=== PATIENT | female | born 1945 | race Caucasian/White ===

== ENCOUNTER → 2016-12-15 | Outpatient (CLI) | payer MEDICARE ==
--- NOTE | 2016-12-16 08:35 | MM ---
Reason for exam: screening (asymptomatic). Last mammogram was performed 1 year ago. History: Patient is postmenopausal, has history of endometrial cancer at age 61, has history of colon cancer at age 61, and is nulliparous. Physical Findings: A clinical breast exam by your physician is recommended on an annual basis and results should be correlated with mammographic findings. MG 3D Screening Mammo W/Cad Bilateral CC, MLO, and XCCL view(s) were taken. Prior study comparison: December 05, 2015, bilateral MG 3d diag mammo w/cad [facility]. May 28, 2015, bilateral MG 3d screening mammo w/cad. Finding: There are typically benign calcifications in both breasts. No significant changes in finding since December 05, 2015 and May 28, 2015. ASSESSMENT: Benign, BI-RAD 2 RECOMMENDATION: Routine screening mammogram of both breasts in 1 year.
== END ==
LOC: RADMAMWWP 10:32
PROVIDERS: ATTEND Family Medicine
DX: Z12.31 Encounter for screening mammogram for malignant neoplasm of breast (principal)
CPT/HCPCS: 77063; G0202

== ENCOUNTER → 2017-06-27 | Outpatient (CLI) | payer MEDICARE ==
--- NOTE | 2017-06-28 15:20 | PE ---
EXAMINATION TYPE: PET CT fusion skull to thigh DATE OF EXAM: 06/27/2017 CLINICAL HISTORY: 71-year-old female restaging colon cancer. Patient with surgery on 08/30/2007. TECHNIQUE: Following the intravenous administration of 11.2 mCi of F-18 FDG, whole body images are performed from the skull base to the midthigh. Images are reviewed on the computer in the coronal, a xial, and sagittal planes. Reconstructed rotating images are created on independent workstation and reviewed on the computer. A localization and attenuation correction CT is performed in conjunction with the PET scan. Glucose level: 71 mg/dL CTDI: 5.05 mGy DLP: 448.99 mGy-cm Injection site: right antecubital fossa COMPARISON: 12/01/2011 FINDINGS: PET: Physiologic FDG uptake within the neck. Physiologic FDG uptake within the chest. Average liver SUV 2.8. There is a staple line from prior resection and re-anastomosis along the mid to distal sigmoid. No bennett spicious mass or hypermetabolism here. Physiologic FDG uptake within the abdomen and pelvis. ATTENUATION CORRECTION CT: Paranasal sinuses and mastoid air cells well pneumatized. Slight rightward nasal septal deviation. No cervical lymphadenopathy. The heart is upper limits of normal in size without pericardial effusion. Aorta normal caliber with c onventional arch vessel branching anatomy. Large caliber to the main right and left pulmonary arterie s at 3.4 and 2.7 cm, respectively, suggestive of pulmonary arterial hypertension. A few nonenlarged m ediastinal lymph nodes measure up to 6 mm precarinal region. No thoracic lymphadenopathy by CT size c riteria. Evaluation of the lungs shows mild diffuse bronchial wall thickening which can be seen with bronchitis or asthma. No consolidation or pleural effusion. Some strandy bibasilar atelectasis. Moderate-sized hiatal hernia. Numerous layering calculi in the gallbladder. No abnormal gallbladder distention. Progressive fatty atrophy of the pancreas. No dilated small bowel, free fluid, or free ai r. No mesenteric or retroperitoneal lymphadenopathy. No significant stool burden. Bladder nondistended. Uterus surgically absent. Neither ovary is visualized. No abnormal fluid collec tion in the pelvis or pelvic lymphadenopathy. Bones: Mild degenerative changes at the hips. Degenerative changes lower lumbar spine. Endplate spond ylosis mid thoracic spine. No osseous destructive process. IMPRESSION: 1. Prior partial sigmoid resection with reanastomosis. No evidence for locoregional recurrence or met astatic disease. 2. Incidental: Findings suggest pulmonary arterial hypertension. 3. Incidental: Moderate size hiatal hernia and numerous gallstones.
== END | disposition home or self-care (01) ==
LOC: RADPETMAIN 11:18
PROVIDERS: ATTEND Family Medicine
DX: C18.9 Malignant neoplasm of colon, unspecified (principal); Z98.890 Other specified postprocedural states
CPT/HCPCS: 78815; A9552

== ENCOUNTER → 2018-01-30 | Outpatient (CLI) | payer MEDICARE ==
--- NOTE | 2018-02-01 10:22 | MM ---
Reason for exam: screening (asymptomatic). Last mammogram was performed 1 year and 2 months ago. History: Patient is postmenopausal, has history of endometrial cancer at age 61, has history of colon cancer at age 61, and is nulliparous. Physical Findings: Nurse did not find any significant physical abnormalities on exam. MG 3D Screening Mammo W/Cad Bilateral CC and MLO view(s) were taken. Prior study comparison: December 15, 2016, bilateral MG 3d screening mammo w/cad. December 05, 2015, bilateral MG 3d diag mammo w/cad [facility]. There are scattered fibroglandular densities. Benign appearing bilateral calcifications. No suspicious abnormality. No significant changes when compared with prior studies. ASSESSMENT: Benign, BI-RAD 2 RECOMMENDATION: Routine screening mammogram of both breasts in 1 year.
== END | disposition home or self-care (01) ==
LOC: RADMAMWWP 11:27
PROVIDERS: ATTEND Family Medicine
DX: Z12.31 Encounter for screening mammogram for malignant neoplasm of breast (principal)
CPT/HCPCS: 77063; 77067

== ENCOUNTER → 2018-03-22 | Outpatient (CLI) | payer MEDICARE ==
--- NOTE | 2018-03-22 11:38 | US ---
EXAMINATION TYPE: US abdomen complete DATE OF EXAM: 03/22/2018 COMPARISON: NONE CLINICAL HISTORY: 72-year-old female R07.89 Other chest pain. TECHNIQUE: Multiple sonographic images of the abdomen are obtained. FINDINGS: EXAM MEASUREMENTS: Liver Length: 17.2 cm Gallbladder Wall: 0.3 cm CBD: 0.4 cm Spleen: 8.7 cm Right Kidney: 10.6 x 5.9 x 6.2 cm Left Kidney: 11.1 x 6.5 x 6.5 cm Pancreas: The pancreatic head, neck, and a portion of the body are visualized and show no gross abno rmality. The remainder of the pancreatic body and tail are suboptimally visualized due to shadowing f rom bowel gas. Liver: Heterogeneous, echogenic, and attenuating. Some focal fat is present along the gallbladder fo ssa. Gallbladder: Numerous mobile gallstones are present. No abnormal distention, wall thickening, or per icholecystic fluid.Evidence for sonographic Sam's sign: no CBD: wnl Spleen: wnl Right Kidney: No hydronephrosis. Left Kidney: No hydronephrosis. Upper IVC: wnl Abd Aorta: wnl IMPRESSION: 1. Borderline size liver (17.2 cm) with mild to moderate hepatic steatosis. 2. Cholelithiasis without evidence for acute cholecystitis. 3. No biliary ductal dilatation.
== END | disposition home or self-care (01) ==
LOC: RADUSWWP 07:18
PROVIDERS: ATTEND Family Medicine
DX: K80.20 Calculus of gallbladder without cholecystitis without obstruction (principal); K76.0 Fatty (change of) liver, not elsewhere classified
CPT/HCPCS: 76700

== ENCOUNTER → 2019-02-03 | Outpatient (CLI) | payer MEDICARE ==
--- NOTE | 2019-02-03 15:05 | BD ---
EXAMINATION TYPE: Axial Bone Density DATE OF EXAM: 02/03/2019 COMPARISON: 11.07.2009 CLINICAL HISTORY: 73 YR OLD FEMALE.... ICD-10 CODE: M89.9 DISORDER OF BONE Height: 65.2 Weight: 243 FRAX RISK QUESTIONS: 5. Chronic liver disease: FATTY LIVER RISK FACTORS HISTORY OF: Active: FAIRLY Postmenopausal woman: YES ABOUT AGE 55 YRS OLD Hyperparathyroidism: NO Adrenal Insufficiency: NO MEDICATIONS: Thyroid Medications: YES, SYNTHROID FOR ABOUT ONE YR Additional Medications: BP MEDS, VIT D, Additional History: BILAT TOTAL KNEES, OSTEOARTHRITIS, ENDOMETRIAL AND COLON CANCER, EXAM MEASUREMENTS: Bone mineral densitometry was performed using the [employer] System. Bone mineral density as measured about the Lumbar spine is: ----- L1-L4(G/cm2): 1.100 T Score Values are as follows: ----- L1: -1.2 ----- L2: -0.8 ----- L3: -0.5 ----- L4: -0.4 ----- L1-L4: -0.7 Bone mineral density has: Increased 9.2% since study of: 11.07.2009 Bone mineral density about the R hip (g/cm2): 0.884 Bone mineral density about the L hip (g/cm2): 0.924 T Score values are as follows: -----R Neck: -1.5 -----L Neck: -1.8 -----R Total: -1.0 -----L Total: -0.7 Bone mineral density has: Increased 1.2% since study of: 11.07.2009 FRAX%s: THERE IS A 10.0% CHANCE FOR A MAJOR OSTEOPOROTIC FX AND A 1.7% FOR HIP....PROBABILITY FOR FX IN 10 YRS TIME IMPRESSION: Osteopenia (T Score between -2.5 and -1). There is slightly increased risk of fracture and the patient may be considered for treatment. Re-Screen 2-5 years. NOTE: T-SCORE=SD OF THE YOUNG ADULT MEAN.
--- NOTE | 2019-02-04 14:11 | MM ---
Reason for exam: screening (asymptomatic). Last mammogram was performed 1 year ago. History: Patient is postmenopausal, has history of endometrial cancer at age 61, has history of colon cancer at age 61, and is nulliparous. Physical Findings: A clinical breast exam by your physician is recommended on an annual basis and results should be correlated with mammographic findings. MG 3D Screening Mammo W/Cad Bilateral CC and MLO view(s) were taken. Prior study comparison: January 30, 2018, bilateral MG 3d screening mammo w/cad. December 15, 2016, bilateral MG 3d screening mammo w/cad. There are scattered fibroglandular densities. Finding: There are typically benign linear diffuse calcifications in both breasts. There is a chronic nodularity bilaterally. There is no discrete abnormality. ASSESSMENT: Benign, BI-RAD 2 RECOMMENDATION: Routine screening mammogram of both breasts in 1 year.
== END | disposition home or self-care (01) ==
LOC: RADMAMWWP 13:12
PROVIDERS: ATTEND Family Medicine
DX: Z12.31 Encounter for screening mammogram for malignant neoplasm of breast (principal); M85.80 Other specified disorders of bone density and structure, unspecified site
CPT/HCPCS: 77063; 77067; 77080

== ENCOUNTER → 2020-02-06 | Outpatient (CLI) | payer MEDICARE ==
--- NOTE | 2020-02-06 14:21 | US ---
EXAMINATION TYPE: US carotid duplex BILAT DATE OF EXAM: 02/06/2020 COMPARISON: NONE CLINICAL HISTORY: G45.9 Transient cerebral ischemic attack. EXAM MEASUREMENTS: RIGHT: Peak Systolic Velocity (PSV) cm/sec ----- Right CCA: 88.1 ----- Right ICA: 101.1 ----- Right ECA: 107.0 ICA/CCA ratio: 1.1 RIGHT: End Diastole cm/sec ----- Right CCA: 25.6 ----- Right ICA: 38.7 ----- Right ECA: 15.4 LEFT: Peak Systolic Velocity (PSV) cm/sec ----- Left CCA: 95.3 ----- Left ICA: 88.1 ----- Left ECA: 59.0 ICA/CCA ratio: 0.9 LEFT: End Diastole cm/sec ----- Left CCA: 29.9 ----- Left ICA: 28.5 ----- Left ECA: 0 VERTEBRALS (direction of flow): Right Vertebral: Antegrade Left Vertebral: Antegrade Rhythm: Normal Grayscale images show moderate hypoechoic plaque at carotid bulb level bilaterally but velocity measu rements and ratios in the visualized portion of both internal carotid arteries is within normal limit s. IMPRESSION: Moderate atherosclerotic changes bilaterally without hemodynamically significant stenosi s in either internal carotid artery. Criteria for Assigning % of Stenosis / Diameter reduction (Estimation based on the indirect measurements of the internal carotid artery velocities (ICA PSV). 1. Normal (no stenosis)=ICA PSV < 125 cm/s: ratio < 2.0: ICA EDV<40 cm/s. 2. Less than 50% stenosis=ICA PSV < 125 cm/s: ratio < 2.0: ICA EDV<40 cm/s. 3. 50 to 69% stenosis=ICA PSV of 125 to 230 cm/s: ration 2.0 ? 4.0: ICA EDV 40-100 cm/s. 4. Greater than 70% stenosis to near occlusion= ICA PSV > 230 cm/s: ratio > 4.0: ICA EDV > 100 cm/s. 5. Near occlusion= ICA PSV velocities may be low or undetectable: variable ratio and ICA EDV. 6. Total occlusion=unable to detect flow.
== END | disposition home or self-care (01) ==
LOC: RADUSWWP 13:12
PROVIDERS: ATTEND Family Medicine
DX: I65.23 Occlusion and stenosis of bilateral carotid arteries (principal)
CPT/HCPCS: 93880

== ENCOUNTER → 2020-02-06 | Outpatient (CLI) | payer MEDICARE ==
--- NOTE | 2020-02-07 14:25 | MM ---
Reason for exam: screening (asymptomatic). Last mammogram was performed 1 year ago. History: Patient is postmenopausal, has history of endometrial cancer at age 61, has history of colon cancer at age 61, and is nulliparous. Physical Findings: A clinical breast exam by your physician is recommended on an annual basis and results should be correlated with mammographic findings. MG 3D Screening Mammo W/Cad Bilateral CC, MLO, and XCCL view(s) were taken. Prior study comparison: February 03, 2019, bilateral MG 3d screening mammo w/cad. January 30, 2018, bilateral MG 3d screening mammo w/cad. There are scattered fibroglandular densities. No significant changes when compared with prior studies. ASSESSMENT: Benign, BI-RAD 2 RECOMMENDATION: Routine screening mammogram of both breasts in 1 year.
== END | disposition home or self-care (01) ==
LOC: RADMAMWWP 13:09
PROVIDERS: ATTEND Family Medicine
DX: Z12.31 Encounter for screening mammogram for malignant neoplasm of breast (principal)
CPT/HCPCS: 77063; 77067

== ENCOUNTER → 2020-09-24 | Outpatient (CLI) | payer MEDICARE ==
--- NOTE | 2020-09-25 08:22 | US ---
EXAMINATION TYPE: US thyroid st tissue head/neck DATE OF EXAM: 09/24/2020 COMPARISON: NONE CLINICAL HISTORY: R22.1 NECK MASS. Patient states personal history of endometrial and colon cancer. Patient noticed palpable area, right cervical area. Scanning was performed directly over palpable are a, as pointed out by patient. There is a chain of nodes, largest measures 1.6 x 0.6 cm. IMPRESSION: Suraj lymph nodes identified.
== END | disposition home or self-care (01) ==
LOC: RADUSWWP 16:18
PROVIDERS: ATTEND Family Medicine
DX: R59.9 Enlarged lymph nodes, unspecified (principal)
CPT/HCPCS: 76536

== ENCOUNTER → 2021-01-18 | Outpatient (CLI) | payer MEDICARE ==
--- NOTE | 2021-01-20 22:24 | US ---
EXAMINATION TYPE: US st tissue neck DATE OF EXAM: 01/18/2021 COMPARISON: NONE CLINICAL HISTORY: 75-year-old female R59.1 Lymphadenopathy. TECHNIQUE: Multiple sonographic images of both sides of the neck. FINDINGS: [employer] notes: Multiple lymph nodes bilateral neck. Largest = 1.5 x 0.7 x 1.2 cm on the right and 1.7 x 0.5 x 0.9 cm on the left IMPRESSION: Multiple lymph nodes on both sides of the neck. These are nonenlarged and borderline in size measurin g up to 1.2 cm short axis on the right and 0.9 cm short axis on the left. Probably reactive/post infl ammatory. Previously reported as measuring up to 1.6 x 0.6 cm. Ongoing clinical and ultrasound follow -up can be considered. If lymph nodes are seen to be enlarging, sampling or contrast-enhanced CT can be considered.
== END | disposition home or self-care (01) ==
LOC: RADUSWWP 16:51
PROVIDERS: ATTEND Family Medicine
DX: R59.1 Generalized enlarged lymph nodes (principal)
CPT/HCPCS: 76536

== ENCOUNTER → 2021-02-18 | Outpatient (CLI) | payer MEDICARE ==
--- NOTE | 2021-02-19 12:23 | MM ---
Reason for exam: screening (asymptomatic). Last mammogram was performed 1 year ago. History: Patient is postmenopausal, has history of endometrial cancer at age 61, has history of colon cancer at age 61, and is nulliparous. Physical Findings: A clinical breast exam by your physician is recommended on an annual basis and results should be correlated with mammographic findings. MG 3D Screening Mammo W/Cad Bilateral CC, MLO, and XCCL view(s) were taken. Prior study comparison: February 06, 2020, bilateral MG 3d screening mammo w/cad. February 03, 2019, bilateral MG 3d screening mammo w/cad. The breast tissue is almost entirely fat. There is chronic nodularity bilaterally. No significant changes when compared with prior studies. ASSESSMENT: Benign, BI-RAD 2 RECOMMENDATION: Routine screening mammogram of both breasts in 1 year.
== END | disposition home or self-care (01) ==
LOC: RADMAMWWP 13:17
PROVIDERS: ATTEND Family Medicine
DX: Z12.31 Encounter for screening mammogram for malignant neoplasm of breast (principal)
CPT/HCPCS: 77063; 77067

== ENCOUNTER → 2022-02-19 | Outpatient (CLI) | payer MEDICARE ==
--- NOTE | 2022-02-20 19:06 | MM ---
Reason for Exam: Screening (asymptomatic). Last screening mammogram was performed 12 month(s) ago. Patient History: Menarche at age 16. Patient has no children. Left ovary removed at age 61. Right ovary removed at age 61. Hysterectomy at age 61. Postmenopausal. Endometrial cancer, age 61. Colorectal cancer, age 61. Risk Values: Karen 5 year model risk: 1.8%. NCI Lifetime model risk: 4.1%. Prior Study Comparison: 02/03/2019 Bilateral Screening Mammogram, [facility]. 02/06/2020 Bilateral Screening Mammogram, [facility]. 02/18/2021 Bilateral Screening Mammogram, [facility]. Tissue Density: There are scattered fibroglandular densities. Findings: Analyzed By CAD. Unchanged focal tortuous vascularity lateral left CC view at middle depth. Asymmetric density laterally left CC view outer posterior depth remains unchanged. Also unchanged bilateral benign secretory calcifications. No significant change from prior exams. Overall Assessment: Benign, BI-RAD 2 Management: Screening Mammogram of both breasts in 1 year. 1. Patient should continue monthly self breast exams. 2. A clinical breast exam by your physician is recommended on an annual basis. 3. This exam should not preclude additional follow-up of suspicious palpable abnormalities. Electronically signed and approved by: Daniel Corea M.D. Radiologist
== END | disposition home or self-care (01) ==
LOC: RADMAMWWP 14:37
PROVIDERS: ATTEND Family Medicine
DX: Z12.31 Encounter for screening mammogram for malignant neoplasm of breast (principal); C19 Malignant neoplasm of rectosigmoid junction; Z78.0 Asymptomatic menopausal state; Z90.722 Acquired absence of ovaries, bilateral; Z85.42 Personal history of malignant neoplasm of other parts of uterus
CPT/HCPCS: 77063; 77067

== ENCOUNTER 2022-10-23 21:51 | Observation (INO) | payer MEDICARE ==
--- NOTE | 2022-10-23 22:36 | CT ---
EXAMINATION TYPE: CT brain cspine wo con CT DLP: 1565 mGycm, Automated exposure control for dose reduction was used. DATE OF EXAM: 10/23/2022 10:28 PM COMPARISON: None.. CLINICAL INDICATION:Female, 76 years old with history of fall; PT reports she lost her balance on her porch and fell backwards onto butt. States she has lower back pain and left shoulder pain TECHNIQUE: Brain: Multiple axial CT images of the brain were obtained without IV contrast. Cspine: Axial CT images from the skull base to the inferior aspect of T2 we obtained without intraven ous contrast. Coronal and sagittal reformatted images were also reviewed. FINDINGS: Brain: Extra-axial spaces: No abnormal extra-axial fluid collections. Ventricular system: Within normal limits Cerebral parenchyma: Mild cerebral atrophy. No acute intraparenchymal hemorrhage or mass effect. The goyal-white junction is well differentiated. Scattered hypoattenuating areas are seen within the whit e matter. Cerebellum: Unremarkable. Mass effect: No evidence of midline shift. Intracranial vasculature: Atherosclerotic calcifications of the intracranial vessels. Soft tissues: Right frontal scalp 1.6 x 0.5 cm lipoma. Calvarium/osseous structures: No depressed skull fracture. Paranasal sinuses and mastoid air cells: Clear. Visualized orbits: Bilateral aphakia Cervical spine: Fracture: None. Osseous structures: Multilevel degenerative disc disease changes with endplate spurring and anterior osteophytosis. Multilevel facet arthropathy. Vertebral alignment: Mild reversal of the normal cervical lordosis. Spinal canal/Neural Foramina: Disc osteophyte complexes at C4-C5 and C6-C7 with at least mild spinal canal stenosis. Facet joint uncovertebral joint arthropathy scattered throughout the cervical spine w ith varying degrees of neural foraminal stenosis. Neck soft tissues: Prevertebral soft tissues are within normal limits. Other: The airway is patent. The lung apices are clear. IMPRESSION: 1. No acute intracranial process. 2. Nonspecific white matter changes, likely secondary to chronic small vessel ischemic disease. 3. No evidence of cervical spine fracture. 4. Mild multilevel degenerative disc disease.
[2022-10-23] MEDS ORDERED: MORPHINE SULFATE 4 MG/ML SYRINGE IM STA (22:41)
--- NOTE | 2022-10-23 22:42 | XR ---
EXAMINATION TYPE: XR shoulder complete LT, XR clavicle LT DATE OF EXAM: 10/23/2022 10:34 PM INDICATION: Patient age:Female; 76 years old; Reason for study: fall; COMPARISON: None TECHNIQUE: The left shoulder was examined in AP internal rotation, AP external rotation, scapular Y view projection. The left clavicle was evaluated in 2 views. FINDINGS: No acute fracture or dislocation. Diffuse bone demineralization. Mild soft tissue swelling of the jose enrique ulder. The remaining portions of the visualized chest are unremarkable. IMPRESSION: 1. No acute osseous pathology. 2. Mild soft tissue tissue swelling of the shoulder.
--- NOTE | 2022-10-23 22:49 | CT ---
EXAMINATION TYPE: CT lumbar spine wo con CT DLP: 1533.4 mGycm, Automated exposure control for dose reduction was used. DATE OF EXAM: 10/23/2022 10:29 PM COMPARISON: None. CLINICAL INDICATION:Female, 76 years old with history of fall; PHH, PT reports she lost her balance o n her porch and fell backwards onto butt. States she has lower back pain and left shoulder pain TECHNIQUE: Multiple axial images were obtained from the midportion of T11 through the sacroiliac kings nts. Soft tissue and bone windows in coronal and sagittal planes were obtained and reviewed. 3-D ref ormats of the bones were created on a separate workstation and submitted for review. FINDINGS: Grade 1 anterolisthesis of L4 on L5 without evidence of pars defects. Acute compression deformities o f the superior and anterior endplates of the T12 and L2 vertebral bodies. There is less than 5% heigh t loss of the T12 vertebral body and approximately 10% height loss of the L2 vertebral body centrally . No retropulsion identified. Multilevel degenerative disc disease with disc space narrowing, endplat e sclerosis, and vacuum disc disease of the lower lumbar spine. Discs: T12-L1: Broad-based disc bulge with mild effacement of the anterior thecal sac. The neural foramen ar e patent bilaterally. L1-L2: Broad-based disc bulge with mild effacement of the anterior thecal sac. The neural foramen are patent bilaterally. L2-L3: Broad-based disc bulge with mild effacement of the anterior thecal sac. The neural foramen are patent bilaterally. L3-L4: Broad-based disc bulge with mild effacement of the anterior thecal sac. The neural foramen are patent bilaterally. L4-L5: Grade 1 anterolisthesis with uncovering of the disc and a broad-based disc bulge. Mild efface ment of the anterior thecal sac. Mild to moderate left neural foraminal stenosis. The right neural fo ramen is patent. L5-S1: No spinal canal or neural foraminal stenosis is identified. Other: Cholelithiasis. Fatty infiltration of the pancreas. Anastomosis in the region of the sigmoid c olon. IMPRESSION: 1. Acute compression deformities of the T12 and L2 vertebral bodies with minimal height loss. No retr opulsion. 2. Grade 1 anterolisthesis of L4 on L5. 3. Mild multilevel degenerative disc disease. 4. Cholelithiasis.
[2022-10-23] MEDS ORDERED: ONDANSETRON ODT 4 MG TAB PO STA (22:50)
[2022-10-23] MEDS ORDERED: MORPHINE SULFATE 4 MG/ML SYRINGE IVP STA (22:54)
[2022-10-24] MEDS ORDERED: ACETAMINOPHEN TAB 325 MG TAB PO PRN (00:07)
[2022-10-24] MEDS ORDERED: NALOXONE 0.4 MG/ML 1 ML VIAL IV PRN (00:07)
--- NOTE | 2022-10-24 00:30 | ED ---
Fall HPI - General Chief Complaint: Fall Stated Complaint: FALL Time Seen by Provider: 10/23/22 22:00 Source: patient, EMS Mode of arrival: EMS - History of Present Illness Initial Comments: 76-year-old female presenting with chief complaint of lower back pain. Patient lost her balance while on her porch and fell backwards landing on her buttocks. States that she felt sudden lower back pain and a "crunch". She denies head injury or loss of consciousness. She is on Xarelto. She is also complaining of left shoulder and clavicle pain. She has full range of motion of the arm. When the patient has to change positions she states that she gets nauseous and vomits, may be due to the level of pain in her lower back. No loss of bowel or bladder control or saddle paresthesia. No fevers. No abdominal pain. No neck pain. - Related Data Home Medications Medication Instructions Recorded Confirmed Cholecalciferol [Vitamin D3 (25 1,000 unit PO DAILY 06/30/13 06/19/14 Mcg = 1000 Iu)] Multivitamin [Multivitamins] 1 each PO DAILY 06/30/13 06/19/14 atenoloL [Tenormin] 25 mg PO DAILY 06/30/13 06/19/14 L.acid/L.casei/B.bif/B.ryann/Fos 1 each PO DAILY 06/08/14 06/19/14 [Probiotic Blend Capsule] Previous Rx's Medication Instructions Recorded Celecoxib [CeleBREX] 200 mg PO DAILY #30 cap 06/19/14 Rivaroxaban [Xarelto] 10 mg PO DAILY #10 tab 06/19/14 HYDROcodone/APAP 7.5-325MG [[place] 1 - 2 each PO Q6HR PRN #60 tab 06/20/14 7.5] traMADol HCl [Ultram] 50 mg PO Q6H PRN #40 tab 06/20/14 Allergies Allergy/AdvReac Type Severity Reaction Status Date / Time No Known Allergies Allergy Verified 10/23/22 21:53 Review of Systems ROS Statement: Those systems with pertinent positive or pertinent negative responses have been documented in the HPI. ROS Other: All systems not noted in ROS Statement are negative. Past Medical History Past Medical History: Cancer, Hypertension, Osteoarthritis (OA), Sleep Apnea/CPAP/BIPAP Additional Past Medical History / Comment(s): HX PVC'S, USES C-PAP, HX OF COLON AND ENDOMETRIAL CANCER History of Any Multi-Drug Resistant Organisms: None Reported Past Surgical History: Bowel Resection, Hysterectomy, Joint Replacement, Orthopedic Surgery Additional Past Surgical History / Comment(s): RT KNEE REPLACEMENT, VALENTINO CATARACTS, COLONOSCOPY. colon resection Past Anesthesia/Blood Transfusion Reactions: No Reported Reaction Past Psychological History: No Psychological Hx Reported Smoking Status: Never smoker Past Alcohol Use History: None Reported Past Drug Use History: None Reported - Past Family History Sister(s) Family Medical History: Cancer Brother(s) Family Medical History: Cancer Mother Family Medical History: Cancer General Exam Limitations: no limitations General appearance: alert, in no apparent distress Head exam: Present: atraumatic, normocephalic, normal inspection Eye exam: Present: normal appearance, EOMI. Absent: scleral icterus, periorbital swelling Neck exam: Present: normal inspection, full ROM. Absent: tenderness Respiratory exam: Present: normal lung sounds bilaterally. Absent: respiratory distress, wheezes, rales, rhonchi, stridor Cardiovascular Exam: Present: regular rate, normal rhythm, normal heart sounds. Absent: systolic murmur, diastolic murmur, rubs, gallop, clicks Left Shoulder Exam: Present: normal inspection, full ROM, tenderness. Absent: swelling Neurological exam: Present: alert, oriented X3, CN II-XII intact Psychiatric exam: Present: normal affect, normal mood Skin exam: Present: warm, dry, intact, normal color. Absent: rash Course Vital Signs 10/23/22 21:53 Temperature 98.1 F Pulse Rate 81 Respiratory 18 Rate Blood Pressure 164/70 O2 Sat by Pulse 98 Oximetry Medical Decision Making - Medical Decision Making Was pt. sent in by a medical professional or institution (, PA, ANIMAL PHYSIOLOGY TEACHER, urgent care, hospital, or shelter...) When possible be specific @ -No Did you speak to anyone other than the patient for history (EMS, parent, family, police, friend...)? What history was obtained from this source @ -No Did you review nursing and triage notes (agree or disagree)? Why? @ -I reviewed and agree with nursing and triage notes Were old charts reviewed (outside hosp., previous admission, EMS record, old EKG, old radiological studies, urgent care reports/EKG's, shelter records)? Report findings @ -No old charts were reviewed Differential Diagnosis (chest pain, altered mental status, abdominal pain women, abdominal pain men, vaginal bleeding, weakness, fever, dyspnea, syncope, headache, dizziness, GI bleed, back pain, seizure, CVA, palpatations, mental health, musculoskeletal)? @ - [facility] Differential Back Pain: Strain, zoster, cauda equina syndrome, epidural abscess, vertebral osteomyelitis, discitis, fracture, subluxation, disc herniation, DJD, spinal stenosis, dissection, AAA, pancreatitis, peptic ulcer disease, pyelonephritis, kidney stone this is not meant to be an all-inclusive list. EKG interpreted by me (3pts min.). @ -As above X-rays interpreted by me (1pt min.). @ -None done CT interpreted by me (1pt min.). @ -Acute compression deformities of the T12 and L2 vertebral bodies with minimal height loss. No retropulsion. Grade 1 anterior listhesis of L4 on L5. Mild multilevel degenerative disc disease. Cholelithiasis. U/S interpreted by me (1pt. min.). @ -None done What testing was considered but not performed or refused? (CT, X-rays, U/S, labs)? Why? @ -None What meds were considered but not given or refused? Why? @ -None Did you discuss the management of the patient with other professionals (professionals i.e. , PA, ANIMAL PHYSIOLOGY TEACHER, lab, RT, psych nurse, social service worker, cane weigher, teacher, flight deck officer, binder caser)? Give summary @ -Discussed with Dr. Darnell who accepted admission Was smoking cessation discussed for >3mins.? @ -No Was critical care preformed (if so, how long)? @ -No Were there social determinants of health that impacted care today? How? (Homelessness, low income, unemployed, alcoholism, drug addiction, transportation, low edu. Level, literacy, decrease access to med. care, care home, rehab)? @ -No Was there de-escalation of care discussed even if they declined (Discuss DNR or withdrawal of care, Hospice)? DNR status @ -No What co-morbidities impacted this encounter? (DM, HTN, Smoking, COPD, CAD, Cancer, CVA, ARF, Chemo, Hep., AIDS, mental health diagnosis, sleep apnea, morbid obesity)? @ -None Was patient admitted / discharged? Hospital course, mention meds given and route, prescriptions, significant lab abnormalities, going to OR and other pertinent info. @ -76-year-old female presenting with chief complaint of lower back pain after a fall. No head injury or loss of consciousness. Patient is on Xarelto. No red flag symptoms. CT shows compression fractures of T12 and L2. Patient will be admitted for pain management. She is agreeable with this plan. I discussed this case with my attending Dr. Shelton Undiagnosed new problem with uncertain prognosis? @ -No Drug Therapy requiring intensive monitoring for toxicity (Heparin, Nitro, Insulin, Cardizem)? @ -No Were any procedures done? @ -No Diagnosis/symptom? @ -Compression fractures Acute, or Chronic, or Acute on Chronic? @ -Acute Uncomplicated (without systemic symptoms) or Complicated (systemic symptoms)? @ -Complicated Side effects of treatment? @ -No Exacerbation, Progression, or Severe Exacerbation? @ -No Poses a threat to life or bodily function? How? (Chest pain, [place], [place], pneumonia, PE, COPD, DKA, ARF, appy, cholecystitis, CVA, Diverticulitis, Homicidal, Suicidal, threat to staff... and all critical care pts) @ -No Disposition Clinical Impression: Compression fracture Disposition: ADMITTED IP TO THIS HOSP Condition: Fair Time of Disposition: 00:30
[2022-10-24] MEDS: HYDROmorphone 1 MG/ML 1 ML SYRINGE IVP PRN ×2 (04:51→11:34)
[2022-10-24] MEDS: ONDANSETRON 4 MG/2 ML VIAL IVP PRN ×2 (07:45→17:04)
[2022-10-24] MEDS: METOPROLOL SUCCINATE (ER) 25 MG TAB.ER.24H PO SCH ×2 (10:12→17:04)
[2022-10-24] MEDS: LEVOTHYROXINE 50 MCG TAB PO SCH (10:12)
[2022-10-24 12:09] LABS: Basophils % (A) 0 %; Eosinophils % (A) 0 %; HCT 45.5 % (34.0-46.0); HGB 14.5 gm/dL (11.4-16.0); Lymphocytes # (A) 0.6 k/uL (1.0-4.8); Lymphocytes % (A) 4 %; MCH 30.9 pg (25.0-35.0); MCHC 31.8 g/dL (31.0-37.0); MCV 97.3 fL (80.0-100.0); Mean Platelet Volume 8.3; Monocytes # (A) 0.6 k/uL (0-1.0); Monocytes % (A) 4 %; Neutrophils # (A) 13.1 k/uL (1.3-7.7); Neutrophils % (A) 91 %; Platelet Count 295 k/uL (150-450); RBC 4.68 m/uL (3.80-5.40); RDW 13.3 % (11.5-15.5); WBC 14.4 k/uL (3.8-10.6)
[2022-10-24 12:23] LABS: ALT 110 U/L (4-34); AST 124 U/L (14-36); African American GFR (CKD) 84 (>60 ml/min/1.73 sqM); Albumin/Globulin Ratio 1.2; Alkaline Phosphatase 118 U/L (38-126); Anion Gap 8 mmol/L; Blood Urea Nitrogen 14 mg/dL (7-17); Calcium 9.1 mg/dL (8.4-10.2); Carbon Dioxide 28 mmol/L (22-30); Chloride 104 mmol/L (98-107); Globulin 3.4 g/dL; Glucose 106 mg/dL (74-99); Non-African American GFR(CKD) 73 (>60 ml/min/1.73 sqM); Sodium 140 mmol/L (137-145); Total Bilirubin 1.5 mg/dL (0.2-1.3); Total Protein 7.4 g/dL (6.3-8.2)
--- NOTE | 2022-10-24 12:45 | P.CNOR ---
History of Present Illness - [facility] Consult date: 10/24/22 Consult reason: fracture (T12, L2 fractures) History of present illness: This is a 76-year-old female who lost her balance and fell backward off a porch yesterday, sustaining injury to her low back and left shoulder. She was brought to the emergency department and is being admitted to internal medicine. Ronald've [place] consulted for orthopedic evaluation. She has no complaint of numbness or tingling to the legs. No complaint of pain or weakness to the lower extremities. No bowel or bladder dysfunction. Past Medical History Past Medical History: Cancer, Hypertension, Osteoarthritis (OA), Sleep Apnea/CPAP/BIPAP Additional Past Medical History / Comment(s): HX PVC'S, USES C-PAP, HX OF COLON AND ENDOMETRIAL CANCER History of Any Multi-Drug Resistant Organisms: None Reported Past Surgical History: Bowel Resection, Hysterectomy, Joint Replacement, Orthopedic Surgery Additional Past Surgical History / Comment(s): RT KNEE REPLACEMENT, VALENTINO CATARACTS, COLONOSCOPY. colon resection Past Anesthesia/Blood Transfusion Reactions: No Reported Reaction Past Psychological History: No Psychological Hx Reported Smoking Status: Never smoker Past Alcohol Use History: None Reported Past Drug Use History: None Reported - Past Family History Sister(s) Family Medical History: Cancer Brother(s) Family Medical History: Cancer Mother Family Medical History: Cancer Medications and Allergies Home Medications Medication Instructions Recorded Confirmed Type Apixaban [Eliquis] 5 mg PO BID-W/MEALS 10/24/22 10/24/22 History Levothyroxine Sodium [Synthroid] 50 mcg PO AC-BRKFST 10/24/22 10/24/22 History Metoprolol Succinate (ER) [Toprol 25 mg PO BID-W/MEALS 10/24/22 10/24/22 History Xl] Allergies Allergy/AdvReac Type Severity Reaction Status Date / Time No Known Allergies Allergy Verified 10/24/22 08:06 Physical Examination This is a pleasant 76-year-old female in no acute distress. She is alert and oriented 3. Exam of the head neck reveal no obvious deformities. She has fairly good cervical spine motion without difficulty or pain. Exam the upper extremities is unremarkable. There are some stiffness with movement to the left shoulder. She is able to raise the arm up and abduct the arm without difficulty. Neurovascular status the upper extremities is intact. Exam of the thoracic and lumbar spine reveal no obvious deformity. There is pain about the lower thoracic and upper lumbar vertebrae. Exam the lower extremities reveals no obvious deformity. No hip irritability with rotation. She can raise each leg off the bed independently. She has full foot and ankle motion without difficult or pain. Neurovascular status to the lower extremities is intact. Results X-rays of the left shoulder and clavicle reveal no acute bony abnormality. No obvious fracture noted. Computed tomography scan of the lumbar spine reveals a minimally depressed T12 compression fracture with no retropulsion. There is also a minimally depressed L2 compression fracture with no retropulsion. No other bony abnormality or fracture is noted. - Labs Labs: Abnormal Lab Results - Last 24 Hours (Table) 10/24/22 10/24/22 Range/Units 11:21 11:21 WBC 14.4 H (3.8-10.6) k/uL Neutrophils # 13.1 H (1.3-7.7) k/uL Lymphocytes # 0.6 L (1.0-4.8) k/uL Glucose 106 H (74-99) mg/dL Total Bilirubin 1.5 H (0.2-1.3) mg/dL AST 124 H (14-36) U/L ALT 110 H (4-34) U/L H & H 10/24/22 Range/Units 11:21 Hgb 14.5 (11.4-16.0) gm/dL Hct 45.5 (34.0-46.0) % Result Diagrams: 10/24/22 11:21 10/24/22 11:21 Assessment and Plan (1) Compression fracture of L2 Current Visit: Yes Status: Acute Code(s): S32.020A - WEDGE COMPRESSION FRACT URE OF SECOND LUMBAR VERTEBRA, INIT SNOMED Code(s): 58217264567007455 (2) Compression fracture of T12 vertebra Current Visit: Yes Status: Acute Code(s): S22.080A - WEDGE COMPRESSION FRACTURE OF T11-T12 VERTEBRA, INIT SNOMED Code(s): 208328260 Plan: The clinical and x-ray findings are discussed the patient and her . It is recommended she go into a lumbar sacral brace for mobilization. The brace has been ordered and will be obtained hopefully today. She is to have the brace on whenever she is upright beyond 45 angle. She will follow-up in our office in 2 weeks for reevaluation and x-ray.
--- NOTE | 2022-10-24 13:20 | P.HPIM ---
History of Present Illness H&P Date: 10/24/22 Chief Complaint: Compression fracture T12 L2 Ranjana Burnett, is a 76-year-old female patient of Dr. Goodson who presented to the ER after sustaining a fall in which she tripped over staff and fell back landing on her backside. Patient denies a syncopal episode or any previous symptoms leading up to fall. Patient reports that she lost her balance. Patient has past medical history of hypertension, osteoarthritis, sleep apnea and history of colon and endometrial cancer. Head and cervical spine CT completed showing no acute intracranial process. Nonspecific white matter changes likely secondary to chronic small vessel ischemic disease. No evidence of cervical spine f racture mild multilevel degenerative disc disease. Clavicle x-ray showing no acute osseous pathology mild soft tissue swelling of the shoulder. Lumbar CT completed showing acute compression deformities of T12 and L2 vertebral bodies with minimal height loss grade 1 anterolisthesis of L4 and L5. Mild multilevel degenerative disc disease cholelithiasis. Current vital signs temp 98.1, heart rate 79, respiratory rate 18, blood pressure 120/82 with pulse ox 97% on room air. At this time patient will be admitted to orthopedic surgery was consulted. Lab work ordered. Pain meds ordered Review of Systems Please refer to HPI otherwise unremarkable Past Medical History Past Medical History: Cancer, Hypertension, Osteoarthritis (OA), Sleep Apnea/CPAP/BIPAP Additional Past Medical History / Comment(s): HX PVC'S, USES C-PAP, HX OF COLON AND ENDOMETRIAL CANCER History of Any Multi-Drug Resistant Organisms: None Reported Past Surgical History: Bowel Resection, Hysterectomy, Joint Replacement, Orthopedic Surgery Additional Past Surgical History / Comment(s): RT KNEE REPLACEMENT, VALENTINO CATARACTS, COLONOSCOPY. colon resection Past Anesthesia/Blood Transfusion Reactions: No Reported Reaction Past Psychological History: No Psychological Hx Reported Smoking Status: Never smoker Past Alcohol Use History: None Reported Past Drug Use History: None Reported - Past Family History Sister(s) Family Medical History: Cancer Brother(s) Family Medical History: Cancer Mother Family Medical History: Cancer Medications and Allergies Home Medications Medication Instructions Recorded Confirmed Type Apixaban [Eliquis] 5 mg PO BID-W/MEALS 10/24/22 10/24/22 History Levothyroxine Sodium [Synthroid] 50 mcg PO AC-BRKFST 08/25/23 08/25/23 History Metoprolol Succinate (ER) [Toprol 25 mg PO BID-W/MEALS 10/24/22 10/24/22 History Xl] Allergies Allergy/AdvReac Type Severity Reaction Status Date / Time No Known Allergies Allergy Verified 10/24/22 08:06 Physical Exam Vitals: Vital Signs Temp Pulse Resp BP Pulse Ox 10/24/22 10:10 78 18 110/68 97 10/24/22 01:45 98.1 F 79 18 120/82 97 10/23/22 21:53 98.1 F 81 18 164/70 98 Intake and Output 10/23/22 10/24/22 10/24/22 22:59 06:59 14:59 Other: Weight 113.398 kg Head normocephalic and atraumatic Neck supple no JVD Lungs clear to auscultation bilaterally no wheezing or crackles Heart regular rate and rhythm S1-S2, no rub or gallop Abdomen is soft nontender nondistended positive bowel sounds no hepatosplenomegaly Extremities no edema no cyanosis Neuro alert and orientated to 3 Results CBC & Chem 7: 10/24/22 11:21 10/24/22 11:21 Assessment and Plan Assessment: 1. Compression fracture T12 to L2 following fall 2. History of essential hypertension 3. History of endometrial and colon cancer 4. History of essential hypertension 5. History of sleep apnea DVT prophylaxis SCDs until cleared by surgical services. GI prophylaxis Aron nix orthopedic surgery consulted Laboratory ordered Home meds ordered PT OT services consulted Time with Patient: Greater than 30 (Greater than 60% of the total time spent in counseling and coordination of care)
--- NOTE | 2022-10-24 13:22 | P.PN ---
Progress Note - Text Progress Note Date: 10/24/22 Ranjana Burnett, who is a 76-year-old female admitted with compression fracture Patient was evaluated by orthopedic surgeon, and brace was ordered I received a call from outsole caser that patient was cleared for discharge by orthopedic surgery. I went to the room to discuss discharged with patient however, patient stated that she Lex is feeling very dizzy and she has vomited once. Brace has not been delivered yet. Patient is not feeling ready to be discharged at this time. I will start IV normal saline at 50 mL an hour, will monitor till am
[2022-10-24] MEDS ORDERED: SODIUM CHLORIDE 0.9% 1,000 ML IV STA (13:23)
[2022-10-24] MEDS: HYDROcodone/APAP 5-325MG 1 EACH TAB PO PRN (21:18)
[2022-10-25] MEDS: HYDROcodone/APAP 5-325MG 1 EACH TAB PO PRN ×3 (02:43→14:42)
[2022-10-25] MEDS: LEVOTHYROXINE 50 MCG TAB PO SCH (06:39)
[2022-10-25] MEDS ORDERED: PANTOPRAZOLE 40 MG TABLET PO SCH (07:30)
[2022-10-25 07:40] VITALS: TEMP 98.3
[2022-10-25 08:34] LABS: ALT 79 U/L (4-34); AST 63 U/L (14-36); African American GFR (CKD) 84 (>60 ml/min/1.73 sqM); Albumin 3.4 g/dL (3.5-5.0); Albumin/Globulin Ratio 1.1; Alkaline Phosphatase 93 U/L (38-126); Anion Gap 6 mmol/L; Basophils % (A) 0 %; Blood Urea Nitrogen 14 mg/dL (7-17); Calcium 8.6 mg/dL (8.4-10.2); Carbon Dioxide 29 mmol/L (22-30); Chloride 103 mmol/L (98-107); Eosinophils # (A) 0.1 k/uL (0-0.7); Eosinophils % (A) 1 %; Globulin 3.1 g/dL; Glucose 91 mg/dL (74-99); HCT 41.2 % (34.0-46.0); HGB 13.5 gm/dL (11.4-16.0); Lymphocytes # (A) 0.7 k/uL (1.0-4.8); Lymphocytes % (A) 8 %; MCH 31.5 pg (25.0-35.0); MCHC 32.7 g/dL (31.0-37.0); MCV 96.1 fL (80.0-100.0); Mean Platelet Volume 8.2; Monocytes # (A) 0.6 k/uL (0-1.0); Monocytes % (A) 6 %; Neutrophils # (A) 7.4 k/uL (1.3-7.7); Neutrophils % (A) 84 %; Non-African American GFR(CKD) 73 (>60 ml/min/1.73 sqM); Platelet Count 253 k/uL (150-450); RBC 4.29 m/uL (3.80-5.40); Sodium 138 mmol/L (137-145); Total Bilirubin 1.2 mg/dL (0.2-1.3); Total Protein 6.5 g/dL (6.3-8.2); WBC 8.8 k/uL (3.8-10.6)
--- NOTE | 2022-10-25 09:30 | P.PN ---
Subjective Progress Note Date: 10/25/22 Principal diagnosis: Low back pain. Compression fractures T12 and L2. This is a 76-year-old female who lost her balance and fell backward off a porch yesterday, sustaining injury to her low back and left shoulder. She was brought to the emergency department and is being admitted to internal medicine. We've been consulted for orthopedic evaluation. She has no complaint of numbness or tingling to the legs. No complaint of pain or weakness to the lower extremities. No bowel or bladder dysfunction. 10/25/2022: The patient is doing well from an orthopedic standpoint. She has been in her brace since yesterday. She is currently laying in bed without the brace. She states that her pain is much better with the brace on when she is up. She has no new complaints or concerns today. She states that her shoulder pain is improving. Objective - Vital Signs Vital signs: Vital Signs Temp 98.3 F 10/25/22 07:16 Pulse 49 L 10/25/22 07:16 Resp 17 10/25/22 07:16 BP 115/74 10/25/22 07:16 Pulse Ox 94 L 10/25/22 07:16 FiO2 Intake & Output 10/24/22 10/25/22 10/25/22 18:59 06:59 18:59 Weight 113.398 kg Other: # Voids 1 - Exam This is a 76-year-old female in no acute distress. She is alert and oriented 3. Exam is unchanged. She continues to have tenderness about the lower thoracic and upper lumbar region. Legs are moving fine in bed. She has full range of motion of the left shoulder without difficulty or pain. - Labs CBC & Chem 7: 10/25/22 07:44 10/25/22 07:44 Labs: Abnormal Lab Results - Last 24 Hours (Table) 10/24/22 10/24/22 10/25/22 Range/Units 11:21 11:21 07:44 WBC 14.4 H (3.8-10.6) k/uL Neutrophils # 13.1 H (1.3-7.7) k/uL Lymphocytes # 0.6 L 0.7 L (1.0-4.8) k/uL Glucose 106 H (74-99) mg/dL Total Bilirubin 1.5 H (0.2-1.3) mg/dL AST 124 H (14-36) U/L ALT 110 H (4-34) U/L Albumin (3.5-5.0) g/dL 10/25/22 Range/Units 07:44 WBC (3.8-10.6) k/uL Neutrophils # (1.3-7.7) k/uL Lymphocytes # (1.0-4.8) k/uL Glucose (74-99) mg/dL Total Bilirubin (0.2-1.3) mg/dL AST 63 H (14-36) U/L ALT 79 H (4-34) U/L Albumin 3.4 L (3.5-5.0) g/dL Assessment and Plan (1) Compression fracture of L2 Current Visit: Yes Status: Acute Code(s): S32.020A - WEDGE COMPRESSION FRACTURE OF SECOND LUMBAR VERTEBRA, INIT SNOMED Code(s): 68173490230746940 (2) Compression fracture of T12 vertebra Current Visit: Yes Status: Acute Code(s): S22.080A - WEDGE COMPRESSION FRACTURE OF T11-T12 VERTEBRA, INIT SNOMED Code(s): 484347041 Plan: The clinical findings are discussed the patient. She is doing well and may be discharged from an orthopedic standpoint with the brace. She is to follow-up with Dr. Ornelas in 2 weeks. She is advised to call our office sooner if there are any problems or questions or pain worsens.
[2022-10-25] MEDS: METOPROLOL SUCCINATE (ER) 25 MG TAB.ER.24H PO SCH (09:41)
--- NOTE | 2022-10-25 13:02 | P.DS ---
Providers Date of admission: 10/24/22 00:10 Expected date of discharge: 10/25/22 Attending physician: Fatuma Darnell Consults: 10/24/22 00:07 Consult Physician Urgent Consulting Provider: Jose Alejandro Shields Consult Reason/Comments: compression fractures T12 L2 Do you want consulting provider notified?: Yes, Notify in am Primary care physician: Blanche Goodson Hospital Course: Diagnosis on discharge: 1. Compression fracture T12 to L2 following fall 2. History of essential hypertension 3. History of endometrial and colon cancer 4. History of essential hypertension 5. History of sleep apnea 6. Eleveted liver enzymes, improved during this admission, will need to be monitored as outpatient Hospital course: Ranjana Burnett, is a 76-year-old female patient of Dr. Goodson who presented to the ER after sustaining a fall in which she tripped over staff and fell back landing on her backside. Patient denies a syncopal episode or any previous symptoms leading up to fall. Patient reports that she lost her balance. Patient has past medical history of hypertension, osteoarthritis, sleep apnea and history of colon and endometrial cancer. Head and cervical spine CT completed showing no acute intracranial process. Nonspecific white matter changes likely secondary to chronic small vessel ischemic disease. No evidence of cervical spine fracture mild multilevel degenerative disc disease. Clavicle x-ray showing no acute osseous pathology mild soft tissue swelling of the shoulder. Lumbar CT completed showing acute compression deformities of T12 and L2 vertebral bodies with minimal height loss grade 1 anterolisthesis of L4 and L5. Mild multilevel degenerative disc disease cholelithiasis. Current vital signs temp 98.1, heart rate 79, respiratory rate 18, blood pressure 120/82 with pulse ox 97% on room air. At this time patient will be admitted to orthopedic surgery was consulted. Lab work ordered. Pain meds ordered On 10/25/2022 patient was seen and examined on the medical floor, she is alert and oriented 3 in no apparent distress, she is feeling better, she is stating that her dizziness nausea or vomiting has resolved since yesterday. She is still complaining of low back pain otherwise she denies any complaints, there is no fever or chills no headache or dizziness no chest pain no shortness of breath no cough, no nausea or vomiting no abdominal pain no diarrhea no blood in the stools, no burning with urination no frequency or urgency and no hematuria. Base has been delivered, and patient is able to put it on. In regard to elevated liver enzymes, yesterday patient had an AST of 124 ALT 110 and total bilirubin of 1.5 today AST is down to 63 ALT down to 79 and bilirubin is down to normal at 1.2 Also white blood count was elevated yesterday at 14.4 it's down to normal at 8.8 today. At this point patient wants to go home and she does not want any further evaluation as inpatient. She will be discharged to home today, she will need to follow-up with her primary care physician in regard to elevated liver enzymes, differential diagnosis includes medication affects, past GALLSTONE, versus etiology related to history of cancer. Patient Condition at Discharge: Fair Plan - Discharge Summary Discharge Rx Participant: No New Discharge Prescriptions: Continue Levothyroxine Sodium [Synthroid] 50 mcg PO AC-BRKFST Metoprolol Succinate (ER) [Toprol XL] 25 mg PO BID-W/MEALS Apixaban [Eliquis] 5 mg PO BID-W/MEALS Discharge Medication List Apixaban [Eliquis] 5 mg PO BID-W/MEALS 10/24/22 [History] Levothyroxine Sodium [Synthroid] 50 mcg PO AC-BRKFST 10/24/22 [History] Metoprolol Succinate (ER) [Toprol XL] 25 mg PO BID-W/MEALS 10/24/22 [History] Follow up Appointment(s)/Referral(s): Tracy Ornelas DO [Doctor of Osteopathic Medicine] - 2 Weeks None,Stated [REFERRING] - 1-2 days Fatuma Darnell MD [STAFF PHYSICIAN] - 1 Week Iam Tobin [NON-STAFF] - (Supplier of LSO Brace) Activity/Diet/Wound Care/Special Instructions: Wear LSO brace whenever upright. May have off when in bed if less than 45 elevated. Follow-up with Dr. Ornelas in 2 weeks.
[2022-10-25 14:00] VITALS: BP 122/68; PULSE 55; RESP 18
== END 2022-10-25 15:16 | disposition home or self-care (01) ==
LOC: EC 21:51 → 4SSUR 10-24 00:10
PROVIDERS: ADMIT Internal Medicine; ATTEND Internal Medicine
DX: S32.029A Unspecified fracture of second lumbar vertebra, initial encounter for closed fracture (principal); S22.089A Unspecified fracture of T11-T12 vertebra, initial encounter for closed fracture; W01.0XXA Fall on same level from slipping, tripping and stumbling without subsequent striking against object, initial encounter; Y92.008 Other place in unspecified non-institutional (private) residence as the place of occurrence of the external cause; M25.512 Pain in left shoulder; I10 Essential (primary) hypertension; G47.30 Sleep apnea, unspecified; R74.8 Abnormal levels of other serum enzymes; Z85.038 Personal history of other malignant neoplasm of large intestine; Z85.42 Personal history of malignant neoplasm of other parts of uterus; Z79.01 Long term (current) use of anticoagulants; Z79.1 Long term (current) use of non-steroidal anti-inflammatories (NSAID); Z79.890 Hormone replacement therapy; Z79.899 Other long term (current) drug therapy; M50.321 Other cervical disc degeneration at C4-C5 level; M48.02 Spinal stenosis, cervical region; M25.78 Osteophyte, vertebrae; M51.36 Other intervertebral disc degeneration, lumbar region
CPT/HCPCS: 96376; 96374; 96375; 99285; 80053 ×2; 85025 ×2; 73030; 73000; 72125; 72131; 70450; G0378 ×3; J2270; J2405; J1170

== ENCOUNTER → 2023-03-11 | Outpatient (CLI) | payer MEDICARE ==
--- NOTE | 2023-03-15 15:38 | MM ---
Reason for Exam: Screening (asymptomatic). Last mammogram was performed 1 year(s) and 1 month(s) ago. Patient History: Menarche at age 16. Patient has no children. Left ovary removed at age 61. Right ovary removed at age 61. Hysterectomy at age 61. Postmenopausal. Endometrial cancer, age 61. Colorectal cancer, age 61. Risk Values: Karen 5 year model risk: 1.8%. NCI Lifetime model risk: 3.9%. Prior Study Comparison: 02/06/2020 Bilateral Screening Mammogram, [facility]. 02/18/2021 Bilateral Screening Mammogram, [facility]. 02/19/2022 Bilateral MG 3D screening mammo w/cad, [facility]. Tissue Density: There are scattered fibroglandular densities. Findings: Analyzed By CAD. The pattern is symmetrical and stable. No significant interval changes. Multiple linear benign-appearing calcifications are present bilaterally. No suspicious groups of microcalcifications, spiculated or lobular masses, architectural distortion or other secondary signs of malignancy are mammographically apparent. Overall Assessment: Benign, BI-RAD 2 Management: Screening Mammogram of both breasts in 1 year. A negative mammogram report should not preclude additional follow up of suspicious palpable abnormalities. Patient should continue monthly self breast exam. A clinical breast exam by your physician is recommended on an annual basis and results should be correlated with mammographic findings. Electronically signed and approved by: Gerard Willis D.O. Radiologis
== END | disposition home or self-care (01) ==
LOC: RADMAMWWP 14:23
PROVIDERS: ATTEND Family Medicine
DX: Z12.31 Encounter for screening mammogram for malignant neoplasm of breast (principal); Z78.0 Asymptomatic menopausal state
CPT/HCPCS: 77063; 77067

== ENCOUNTER → 2024-03-18 | Outpatient (CLI) | payer MEDICARE ==
--- NOTE | 2024-03-18 11:17 | MM ---
Reason for Exam: Screening (asymptomatic). Last screening mammogram was performed 12 month(s) ago. Patient History: Menarche at age 16. Patient has no children. Left ovary removed at age 61. Right ovary removed at age 61. Hysterectomy at age 61. Postmenopausal. Risk Values: Karen 5 year model risk: 1.8%. NCI Lifetime model risk: 3.6%. Prior Study Comparison: 02/18/2021 Bilateral Screening Mammogram, [facility]. 02/19/2022 Bilateral MG 3D screening mammo w/cad, [facility]. 03/11/2023 Bilateral MG 3D screening mammo w/cad, [facility]. Tissue Density: There are scattered areas of fibroglandular density. Findings: Analyzed By CAD. There are diffuse bilateral linear calcifications radiating from the nipple bilaterally redemonstrated. Benign-appearing bilateral axillary lymph nodes are redemonstrated. There is no suspicious new group of microcalcifications or new suspicious mass in either breast. Overall Assessment: Benign, BI-RAD 2 Management: Screening Mammogram of both breasts in 1 year. . Patient should continue monthly self-breast exams. A clinical breast exam by your physician is recommended on an annual basis. This exam should not preclude additional follow-up of suspicious palpable abnormalities. Note on Karen scores and lifetime risk: 1. A Karen score greater than 3% is considered moderate risk. If this is the case, consider specialist referral to assess eligibility for a risk reducing agent. 2. If overall lifetime risk for the development of breast cancer is 20% or higher, the patient may qualify for future screening with alternating mammogram and breast MRI. [facility], , 03/18/2024 11:14 AM. Electronically signed and approved by: Anatoliy Hernandez M.D.
--- NOTE | 2024-03-18 12:03 | BD ---
EXAMINATION TYPE: Axial Bone Density DATE OF EXAM: 03/18/2024 CLINICAL HISTORY: 78 years old Female. ICD-10 CODE: Z78.0 MENOPAUSAL , Additional History: Height: 64 Weight: 224.8 FRAX RISK QUESTIONS: Alcohol (3 or more units per day): no Family History (Parent hip fracture): no Glucocorticoids (More than 3mos): no (Ex: prednisone, prednisolone, methylprednisolone, dexamethasone, and hydrocortisone). History of Fracture in Adulthood: yes Secondary Osteoporosis: 1. Type 1 Diabetes: no 2. Hyperthyroidism: no 3. Menopause before 45: no 4. Malnutrition: no 5. Chronic liver disease: no Rheumatoid Arthritis: no Current Tobacco Use: no RISK FACTORS HISTORY OF: Spine Fracture: l-2 and t12 When: 2022 Surgery to Spine/Hip(right/left)/Wrist (right/left): no MEDICATIONS: Thyroid Medications: yes How Lon years EXAM MEASUREMENTS: Bone mineral densitometry was performed using the [employer]. Bone mineral density about the R hip (g/cm2): 0.780 Bone mineral density about the L hip (g/cm2): 0879 T Score values are as follows: -----R Neck: -2.6 -----L Neck: -2.0 -----R Total: -1.8 -----L Total: -1.0 Z Score values are as follows: -----R Neck: -1.4 -----L Neck: -0.8 -----R Total: -0.8 -----L Total: -0.1 Bone mineral density has: decreased -8.3 % since study of: 02.03.2019 Bone mineral density about the L Wrist (g/cm2): 0.663 T Score values are as follows: -----Dist. R+U: -0.8 -----Prox. R+U: 0.1 -----Radius total: -0.2 Z Score values are as follows: -----Dist. R+U: 1.6 -----Prox. R+U: 2.4 -----Radius total: 2.2 Bone mineral density : baseline FRAX%s: The graph provided illustrates a 24.4% chance for a major osteoporotic fx and a 7.5% chance f or the hips probability for fx in 10 years time. IMPRESSION: Osteopenia (T Score between -2.5 and -1) remains present. There is slightly increased risk of fracture and the patient may be considered for treatment. Re-Screen 2-5 years. NOTE: T-SCORE=SD OF THE YOUNG ADULT MEAN. [facility], , 03/18/2024 12:01 PM
== END | disposition home or self-care (01) ==
LOC: RADMAMWWP 10:48
PROVIDERS: ATTEND Family Medicine
DX: Z12.31 Encounter for screening mammogram for malignant neoplasm of breast (principal); Z90.722 Acquired absence of ovaries, bilateral; Z78.0 Asymptomatic menopausal state; R92.323 Mammographic fibroglandular density, bilateral breasts; M85.89 Other specified disorders of bone density and structure, multiple sites
CPT/HCPCS: 77063; 77067; 77080